=== PATIENT | female | born 1930 | race Caucasian/White ===

== ENCOUNTER 2017-12-21 17:44 | Emergency (ER) | payer OTHER ==
--- NOTE | 2017-12-21 18:18 | EKG ---
Test Date: 2017-12-21 Test Time: 17:59:36 Metal Furnace Operator: ROSANNA MEASUREMENT RESULTS: Intervals: Rate: 56 DC: 234 QRSD: 84 QT: 430 QTc: 414 [place]: P: 73 DC: 234 QRS: 43 T: 56 INTERPRETIVE STATEMENTS: Sinus bradycardia with 1st degree AV block Possible Left atrial enlargement Borderline ECG Compared to ECG 07/24/2016 18:35:19 No significant changes Electronically Signed On 12-21-17 18:17:42 CDT by Shaji Jeffery
[2017-12-21 18:40] LABS: Absolute Lymphocytes (CBC) 2.1 K/uL (0.7-4.9); Absolute Monocytes 0.6 K/uL (0.1-1.3); Absolute Neutrophil 4.3 K/uL (1.8-8.0); Basophils % 0.7 % (0-1.3); Eosinophils % 1.8 % (0-4.4); Hematocrit 33.7 % (36.0-45.0); Lymphocytes % 29.3 % (15.3-44.8); MCV 99.8 fL (80-100); MPV 9.8 fL (7.6-11.3); Monocytes % 8.5 % (3.3-12.3); RBC Red Blood Cell Count 3.38 M/uL (3.86-4.86)
[2017-12-21 18:42] LABS: Protime INR 0.92
[2017-12-21 18:55] LABS: Albumin 3.8 g/dL (3.4-5.0); Bilirubin Direct 0.1 mg/dL (0-0.2); Bilirubin Total 0.3 mg/dL (0.2-1.0); CKMB Creatine Kinase MB 1.3 ng/mL (0.3-3.6); Magnesium 2.4 mg/dL (1.8-2.4); Protein, Total 7.4 g/dL (6.4-8.2)
--- NOTE | 2017-12-21 19:27 | RAD REPORT ---
EXAM DESCRIPTION: Nnamdi Single View12/21/2017 6:35 pm CLINICAL HISTORY: Chest pain COMPARISON: April 2017 FINDINGS: The lungs appear clear of acute infiltrate. The heart is normal size IMPRESSION: No acute abnormalities displayed
--- NOTE | 2017-12-21 19:31 | RAD REPORT ---
EXAM DESCRIPTION: US - Abdomen Exam Limited - 12/21/2017 7:11 pm CLINICAL HISTORY: Abdominal pain. COMPARISON: None. FINDINGS: The gallbladder wall is not thickened. A gallstone is not seen. The biliary tree is normal caliber. IMPRESSION: Unremarkable gallbladder ultrasound.
[2017-12-21] MEDS ORDERED: ACETAMINOPHEN 325 MG TABLET ONE (19:32)
--- NOTE | 2017-12-21 20:34 | RAD REPORT ---
EXAM DESCRIPTION: CT - Angio Aorta For Dissection - 12/21/2017 8:02 pm CLINICAL HISTORY: . Chest pain COMPARISON: 1999 ct abdomen TECHNIQUE: Computed tomography angiography of the chest, abdomen pelvis were obtained. 100 cc Isovue 370 was administered intravenously. Coronal and sagittal reconstruction were performed. MIP 3D reconstruction was performed All CT scans are performed using dose optimization technique as appropriate and may include automated exposure control or mA/KV adjustment according to patient size. FINDINGS: An aortic dissection is not seen. An aortic aneurysm is not displayed. A bovine aorta is present The celiac, SMA and PEPE are patent . Thrombus results in marked narrowing of the proximal right renal artery A lung consolidation is not present. A pericardial effusion is not seen. A pleural effusion is not n oted. The liver,spleen, and adrenals demonstrate no significant abnormality. Small renal cysts are present 29 millimeter cystic lesion within the pancreatic body is unchanged There no evidence diverticulitis. No ascites is noted. Spondylosis of the lumbar spine resulting spinal stenosis The wall of the stomach appears thickened IMPRESSION: Negative for an aortic dissection. 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
[2017-12-21 21:05] LABS: Urine Blood NEGATIVE (NEG); Urine Glucose NEGATIVE (NEG); Urine Protein NEGATIVE (NEG); Urine Specific Gravity 1.015 (1.005-1.030)
--- NOTE | 2017-12-21 21:37 | RAD REPORT ---
EXAM DESCRIPTION: RAD - Thoracic Spine Ap/Lat - 12/21/2017 9:24 pm CLINICAL HISTORY: Back pain FINDINGS: The bones are osteoporotic. Mild spondylosis involves the thoracic spine. Mild kyphosis is present No fracture is seen
--- NOTE | 2017-12-21 22:01 | EDPHYS ---
Physician Documentation [facility] Name: Wilian Garcia Age: 87 yrs Sex: Female : 1930 Arrival Date: 12/21/2017 Time: 17:47 Bed 20 Private MD: Luis Mathews ED Physician Tim Garay HPI: 12/21 18:14 This 87 yrs old Female presents to ER via Ambulatory with complaints of Back jmm Pain, Nausea. 18:14 The patient presents with pain that is acute, with no known mechanism of injury. The jmm symptoms are located in the left subscapular area, right subscapular area and thoracic area. Onset: The symptoms/episode began/occurred gradually, 2 week(s) ago. The pain does not radiate. Associated signs and symptoms: Pertinent positives: nausea, Pertinent negatives: chest pain. This is am 87 year old female with a history of HTN that presents to the ED with 2 weeks upper back pain and nausea. Patient denies chest pain abdominal pain or shortness of breath. Patient states her pain is exacerbated when she is moving around. Patient also complains of nausea but she denies vomiting. . Historical: - Allergies: 17:52 Bactrim; hb 17:52 Codeine; hb 17:52 doxycycline hyclate; hb 17:52 Erythromycin; hb 17:52 Morphine; hb - Home Meds: 17:52 amlodipine 5 mg tab 1 tab once daily [Active]; ibandronate 150 mg Oral tab 1 tab once hb moly [Active]; magnesium oxide 500 mg Oral tab [Active]; metoprolol tartrate 25 mg Oral tab 1 tab 2 times per day [Active]; Premarin 0.625 mg/gram Vagl crea [Active]; pantoprazole 20 mg oral TbEC [Active]; - PMHx: 17:52 Hypertension; Osteoporosis; hb - PSHx: 17:52 Carpal Tunnel Repair; Hysterectomy; D \T\ C; bladder sx; Appendectomy; hb - Immunization history:: Adult Immunizations up to date. - Social history:: Smoking status: Patient/guardian denies using tobacco. - Ebola Screening: : No symptoms or risks identified at this time. ROS: 18:14 Constitutional: Negative for fever, chills, and weight loss, Cardiovascular: Negative jmm for chest pain, palpitations, and edema, Respiratory: Negative for shortness of breath, cough, wheezing, and pleuritic chest pain. 18:14 : Negative for injury, bleeding, discharge, and swelling, MS/Extremity: Negative for injury and deformity, Skin: Negative for injury, rash, and discoloration, Neuro: Negative for headache, weakness, numbness, tingling, and seizure. 18:14 Abdomen/GI: Positive for nausea, Negative for abdominal pain, vomiting, diarrhea. 18:14 Back: Positive for pain with movement. 18:14 All other systems are negative. Exam: 18:14 Head/Face: atraumatic. [facility] 18:14 Constitutional: The patient appears in no acute distress, alert, awake. 18:14 Chest/axilla: Inspection: normal. 18:14 Cardiovascular: Rate: normal, Rhythm: regular. 18:14 Respiratory: the patient does not display signs of respiratory distress, Respirations: normal, Breath sounds: are clear throughout. 18:14 Abdomen/GI: Inspection: abdomen appears normal, Bowel sounds: normal, Palpation: abdomen is soft and non-tender, in all quadrants. 18:14 Back: ROM is normal, CVA tenderness, is absent, vertebral tenderness, is not appreciated. 18:14 Musculoskeletal/extremity: ROM: intact in all extremities. 18:14 Skin: Appearance: Color: normal in color. 18:14 Neuro: Orientation: is normal, Mentation: is normal, Memory: is normal, Gait: is steady. 18:14 Psych: Behavior/mood is pleasant, cooperative. Vital Signs: 17:51 BP 162 / 62; Pulse 58; Resp 16; Temp 97.4; Pulse Ox 100% on R/A; Pain 0/10; hb 19:40 BP 150 / 45; Pulse 62; Resp 18; Pulse Ox 100% on R/A; aj1 20:30 BP 140 / 58; Pulse 64; Resp 18; Pulse Ox 100% ; aj1 21:34 BP 131 / 43; Pulse 57; Resp 18; Pulse Ox 99% on R/A; aj1 22:30 BP 113 / 83; Pulse 56; Resp 18; Pulse Ox 100% on R/A; lc1 MDM: 18:05 Patient medically screened. nancy 21:56 Data reviewed: vital signs, nurses notes. Counseling: I had a detailed discussion with nancy the patient and/or guardian regarding: the historical points, exam findings, and any diagnostic results supporting the discharge/admit diagnosis, radiology results, the need for outpatient follow up, to return to the emergency department if symptoms worsen or persist or if there are any questions or concerns that arise at home. 22:30 Data reviewed: lab test result(s), EKG, radiologic studies, CT scan, plain films. [facility] 22:30 ED course: I discussed the patient with Dr. Mathews. Will follow up with the patient in [facility] clinic. Imaging studies do not show any acute findings. Patient has no chest pain or shortness of breath. I do not currently suspect ACS. Patient and family given strict return precautions. Symptoms appear most likely musculoskeletal in nature. . 12/21 18:06 Order name: Basic Metabolic Panel [facility] 12/21 18:06 Order name: CBC with Diff [facility] 12/21 18:06 Order name: Ckmb [facility] 12/21 18:06 Order name: CPK [facility] 12/21 18:06 Order name: LFT's [facility] 12/21 18:06 Order name: Magnesium [facility] 12/21 18:06 Order name: NT PRO-BNP [facility] 12/21 18:06 Order name: PT-INR [facility] 12/21 18:06 Order name: Ptt, Activated [facility] 12/21 18:06 Order name: Troponin (emerg Dept Use Only) [facility] 12/21 18:06 Order name: Lipase [facility] 12/21 18:53 Order name: CBC with Automated Diff; Complete Time: 19:15 [facility] 12/21 18:53 Order name: Protime (+INR); Complete Time: 19:15 [facility] 12/21 18:53 Order name: PTT, Activated Partial Thromb; Complete Time: 19:15 [facility] 12/21 18:06 Order name: XRAY Chest (1 view) [facility] 12/21 18:14 Order name: US Abdomen Limited [facility] 12/21 18:55 Order name: Basic Metabolic Panel; Complete Time: 19:15 [facility] 12/21 18:55 Order name: Liver (Hepatic) Function; Complete Time: 19:15 [facility] 12/21 18:55 Order name: Creatine Phosphokinase; Complete Time: 19:15 [facility] 12/21 18:55 Order name: CKMB Creatine Kinase MB; Complete Time: 19:15 [facility] 12/21 18:55 Order name: NT PRO-BNP; Complete Time: 19:15 [facility] 12/21 18:55 Order name: Magnesium; Complete Time: 19:15 [facility] 12/21 18:55 Order name: Lipase; Complete Time: 19:15 [facility] 12/21 18:55 Order name: Troponin (Emerg Dept Use Only); Complete Time: 19:15 [facility] 12/21 19:27 Order name: RAD; Complete Time: 19:29 [facility] 12/21 19:31 Order name: US; Complete Time: 19:32 [facility] 12/21 19:33 Order name: CT Aorta for Dissection [facility] 12/21 19:40 Order name: Urine Dipstick--Ancillary (enter results); Complete Time: 21:16 [facility] 12/21 20:35 Order name: CT; Complete Time: 20:36 [facility] 12/21 20:43 Order name: XRAY Thoracic Spine (Ap/lat); Complete Time: 21:43 [facility] 12/21 18:06 Order name: EKG; Complete Time: 18:06 [facility] 12/21 18:06 Order name: Cardiac monitoring; Complete Time: 18:09 [facility] 12/21 18:06 Order name: EKG - Nurse/Tech; Complete Time: 18:09 [facility] 12/21 18:06 Order name: IV Saline Lock; Complete Time: 18:24 [facility] 12/21 18:06 Order name: Labs collected and sent; Complete Time: 18:24 [facility] 12/21 18:06 Order name: O2 Per Protocol; Complete Time: 18:09 [facility] 12/21 18:06 Order name: O2 Sat Monitoring; Complete Time: 18:09 [facility] 12/21 18:06 Order name: Urine Dipstick-Ancillary (obtain specimen); Complete Time: 19:41 jm Administered Medications: 22:31 Not Given (Patient Refused): Tylenol 650 mg PO once lc1 Disposition: 12/22 07:08 Co-signature as Attending Physician, Tim Garay MD. rn Disposition: 12/21/17 22:01 Discharged to Home. Impression: Thoracic Strain. - Condition is Stable. - Discharge Instructions: Thoracic Strain. - Medication Reconciliation Form, Thank You Letter, Antibiotic Education, Prescription Opioid Use form. - Follow up: Luis Mathews MD; When: 1 - 2 days; Reason: Recheck today's complaints, Continuance of care, Re-evaluation by your physician. Signatures: Dispatcher [employer] Daysi Green RN RN aj1 Sriram Miles PA PA jmm Nieto, Roman, MD MD rn Calhoun, Lisa lc1 Viridiana Ledezma RN RN Corrections: (The following items were deleted from the chart) 12/21 22:33 22:01 12/21/2017 22:01 Discharged to Home. Impression: Thoracic Strain. Condition is lc1 Stable. Forms are Medication Reconciliation Form, Thank You Letter, Antibiotic Education, Prescription Opioid Use. Follow up: Luis Mathews; When: 1 - 2 days; Reason: Recheck today's complaints, Continuance of care, Re-evaluation by your physician. nancy
--- NOTE | 2017-12-21 22:01 | ER ---
Nurse's Notes [facility] Name: Wilian Garcia Age: 87 yrs Sex: Female : 1930 Arrival Date: 12/21/2017 Time: 17:47 Bed 20 Private MD: Luis Mathews Diagnosis: Thoracic Strain Presentation: 12/21 17:48 Presenting complaint: Presenting complaint: Patient states: Upper back pain and nausea hb since this morning. Pt also reports brief left sided chest pain earlier today. Denies SOB. 17:49 Transition of care: patient was not received from another setting of care. Onset of hb symptoms was December 21, 2017. Risk Assessment: Do you want to hurt yourself or someone else? Patient reports no desire to harm self or others. Care prior to arrival: None. 17:49 Method Of Arrival: Ambulatory hb 17:49 Acuity: ANETA 3 hb Historical: - Allergies: 17:52 Bactrim; hb 17:52 Codeine; hb 17:52 doxycycline hyclate; hb 17:52 Erythromycin; hb 17:52 Morphine; hb - Home Meds: 17:52 amlodipine 5 mg tab 1 tab once daily [Active]; ibandronate 150 mg Oral tab 1 tab once hb moly [Active]; magnesium oxide 500 mg Oral tab [Active]; metoprolol tartrate 25 mg Oral tab 1 tab 2 times per day [Active]; Premarin 0.625 mg/gram Vagl crea [Active]; pantoprazole 20 mg oral TbEC [Active]; - PMHx: 17:52 Hypertension; Osteoporosis; hb - PSHx: 17:52 Carpal Tunnel Repair; Hysterectomy; D \T\ C; bladder sx; Appendectomy; hb - Immunization history:: Adult Immunizations up to date. - Social history:: Smoking status: Patient/guardian denies using tobacco. - Ebola Screening: : No symptoms or risks identified at this time. Screenin:10 Abuse screen: Denies threats or abuse. Denies injuries from another. Nutritional aj1 screening: No deficits noted. Tuberculosis screening: No symptoms or risk factors identified. Assessment: 18:10 General: Appears in no apparent distress. comfortable, Behavior is calm, cooperative, aj1 appropriate for age. Pain: Complains of pain in thoracic area Pain does not radiate. Pain began 2 weeks ago. Neuro: Level of Consciousness is awake, alert, obeys commands, Oriented to person, place, time, situation, Speech is normal, Facial symmetry appears normal. Cardiovascular: Denies chest pain, diaphoresis, lightheadedness, palpitations, shortness of breath, syncope, Heart tones S1 S2 present Patient's skin is warm and dry. Rhythm is regular. Respiratory: Reports shortness of breath on exertion Airway is patent Respiratory effort is even, unlabored, Respiratory pattern is regular, symmetrical, Breath sounds are clear bilaterally. GI: No signs and/or symptoms were reported involving the gastrointestinal system. : No signs and/or symptoms were reported regarding the genitourinary system. EENT: No signs and/or symptoms were reported regarding the EENT system. Derm: No signs and/or symptoms reported regarding the dermatologic system. Skin is pink, warm \T\ dry. normal. Musculoskeletal: No signs and/or symptoms reported regarding the musculoskeletal system. Circulation, motion, and sensation intact. 19:40 Reassessment: Patient appears in no apparent distress at this time. No changes from aj1 previously documented assessment. Patient and/or family updated on plan of care and expected duration. Pain level reassessed. Patient is alert, oriented x 3, equal unlabored respirations, skin warm/dry/pink. 20:40 Reassessment: Patient appears in no apparent distress at this time. No changes from aj1 previously documented assessment. Patient and/or family updated on plan of care and expected duration. Pain level reassessed. Patient is alert, oriented x 3, equal unlabored respirations, skin warm/dry/pink. 21:34 Reassessment: Patient appears in no apparent distress at this time. No changes from aj1 previously documented assessment. Patient and/or family updated on plan of care and expected duration. Pain level reassessed. Patient is alert, oriented x 3, equal unlabored respirations, skin warm/dry/pink. Vital Signs: 17:51 BP 162 / 62; Pulse 58; Resp 16; Temp 97.4; Pulse Ox 100% on R/A; Pain 0/10; hb 19:40 BP 150 / 45; Pulse 62; Resp 18; Pulse Ox 100% on R/A; aj1 20:30 BP 140 / 58; Pulse 64; Resp 18; Pulse Ox 100% ; aj1 21:34 BP 131 / 43; Pulse 57; Resp 18; Pulse Ox 99% on R/A; aj1 22:30 BP 113 / 83; Pulse 56; Resp 18; Pulse Ox 100% on R/A; lc1 ED Course: 17:47 Patient arrived in ED. mr 17:47 Luis Mathews MD is Private Physician. mr 17:51 Triage completed. hb 17:52 Arm band placed on right wrist. hb 17:58 Sriram Miles PA is PHCP. [facility] 17:58 Tim Garay MD is Attending Physician. [facility] 18:05 EKG done, by manufacturing technologist. reviewed by Sriram YOUNG. sm3 18:09 Daysi Persaud, RN is Primary Nurse. aj1 18:10 Patient has correct armband on for positive identification. Bed in low position. Call aj1 light in reach. Side rails up X 1. patient monitor on. Pulse ox on. NIBP on. 18:10 No provider procedures requiring assistance completed. [facility] 18:25 Initial lab(s) drawn, by md, sent to lab. Inserted saline lock: 20 gauge in right [facility] antecubital area, using aseptic technique. Blood collected. 18:33 X-ray completed. Portable x-ray completed in exam room. Patient tolerated procedure bb2 well. 19:10 Ultrasound completed. Patient tolerated well. aa4 19:[address] 2 21:25 XRAY Thoracic Spine (Ap/lat) In Process Unspecified. EDMS 22:00 Luis Mathews MD is Referral Physician. [facility] Administered Medications: 22:31 Not Given (Patient Refused): Tylenol 650 mg PO once lc1 Outcome: 22:01 Discharge ordered by . [facility] 22:33 Patient left the ED. 1 Signatures: Dispatcher [employer] EDMS Daysi Persaud, RN RN 1 Sriram Miles PA PA [facility] BriggsAmeena Padmini Howard aa4 Beth Issa lc1 Viridiana Ledezma RN RN Danae Flores 2 Tania Barney 2 Sania Carrillo 3 Corrections: (The following items were deleted from the chart) 17:51 17:48 Presenting complaint: hb hb 22:31 19:40 Tylenol 650 mg PO aj1 lc1
[2017-12-21 22:40] VITALS: TEMP 97.4
[2017-12-21 22:45] VITALS: BP 113/83; O2SAT 100
== END 2017-12-21 22:33 | disposition home or self-care (01) ==
LOC: ER 17:44
DX: S29.012A Strain of muscle and tendon of back wall of thorax, initial encounter (principal); I10 Essential (primary) hypertension; Z88.1 Allergy status to other antibiotic agents; Z88.3 Allergy status to other anti-infective agents; Z88.5 Allergy status to narcotic agent
CPT/HCPCS: 36415; 71045; 71275; 72070; 74175; 76705; 80048; 80076; 81003; 82550; 82553; 83690; 83735; 83880; 84484; 85025; 85610; 85730; 93005; Q9967; 99285

== ENCOUNTER 2018-04-18 19:16 | Emergency (ER) | payer OTHER ==
--- NOTE | 2018-04-18 20:57 | RAD REPORT ---
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 No acute fracture, dislocation or evidence of AVN.
[2018-04-18] MEDS ORDERED: ACETAMINOPHEN 325 MG TABLET ONE (21:03)
--- NOTE | 2018-04-18 21:13 | EDPHYS ---
Physician Documentation [facility] Name: Wilian Garcia Age: 87 yrs Sex: Female : 1930 Arrival Date: 04/18/2018 Time: 19:20 Bed 28 Private MD: Luis Mathews ED Physician Mychal Young HPI: 04/18 20:57 This 87 yrs old Female presents to ER via Wheelchair with complaints of Fall gs Injury. 20:57 Details of fall: The patient fell from an upright position. Onset: The symptoms/episode gs began/occurred acutely, just prior to arrival. Associated injuries: The patient sustained left hip. Severity of symptoms: At their worst the symptoms were moderate, in the emergency department the symptoms are unchanged. The patient has not experienced similar symptoms in the past. Historical: - Allergies: 19:36 Bactrim; aj 19:36 Codeine; aj 19:36 doxycycline hyclate; aj 19:36 Erythromycin; aj 19:36 Morphine; aj - Home Meds: 19:36 amlodipine 5 mg TbER 1 tab once daily [Active]; aspirin 81 mg Oral TbEC 1 tab once aj daily [Active]; ibandronate 150 mg Oral TbER 1 tab once moly [Active]; magnesium oxide 500 mg Oral TbER [Active]; metoprolol tartrate 25 mg Oral TbER 1 tab 2 times per day [Active]; pantoprazole 20 mg Oral TbEC [Active]; Premarin 0.625 mg/gram Vagl crea [Active]; - PMHx: 19:36 Hypertension; Osteoporosis; aj - PSHx: 19:36 Carpal Tunnel Repair; Hysterectomy; D \T\ C; bladder sx; Appendectomy; aj - Immunization history: Last tetanus immunization: unknown. - Social history:: Smoking status: Patient/guardian denies using tobacco. - Ebola Screening: : Patient negative for fever greater than or equal to 101.5 degrees Fahrenheit, and additional compatible Ebola Virus Disease symptoms Patient denies exposure to infectious person Patient denies travel to an Ebola-affected area in the 21 days before illness onset No symptoms or risks identified at this time. ROS: 20:57 Cardiovascular: Negative for chest pain, palpitations. gs 20:57 All other systems are negative. Exam: 20:57 Head/Face: Normocephalic, atraumatic. Eyes: Pupils equal round and reactive to light, gs extra-ocular motions intact. Lids and lashes normal. Conjunctiva and sclera are non-icteric and not injected. Cornea within normal limits. Periorbital areas with no swelling, redness, or edema. ENT: Nares patent. No nasal discharge, no septal abnormalities noted. Tympanic membranes are normal and external auditory canals are clear. Oropharynx with no redness, swelling, or masses, exudates, or evidence of obstruction, uvula midline. Mucous membranes moist. Neck: Trachea midline, no thyromegaly or masses palpated, and no cervical lymphadenopathy. Supple, full range of motion without nuchal rigidity, or vertebral point tenderness. No Meningismus. Chest/axilla: Normal chest wall appearance and motion. Nontender with no deformity. No lesions are appreciated. Cardiovascular: Regular rate and rhythm with a normal S1 and S2. No gallops, murmurs, or rubs. Normal PMI, no JVD. No pulse deficits. Respiratory: Lungs have equal breath sounds bilaterally, clear to auscultation and percussion. No rales, rhonchi or wheezes noted. No increased work of breathing, no retractions or nasal flaring. Abdomen/GI: Soft, non-tender, with normal bowel sounds. No distension or tympany. No guarding or rebound. No evidence of tenderness throughout. Back: No spinal tenderness. No costovertebral tenderness. Full range of motion. Skin: Warm, dry with normal turgor. Normal color with no rashes, no lesions, and no evidence of cellulitis. Neuro: Awake and alert, GCS 15, oriented to person, place, time, and situation. Cranial nerves II-XII grossly intact. Motor strength 5/5 in all extremities. Sensory grossly intact. Cerebellar exam normal. Normal gait. 20:57 Constitutional: The patient appears alert, awake. 20:57 Musculoskeletal/extremity: Extremities: noted in the left upper thigh and left hip: Circulation is intact in all extremities. Vital Signs: 19:30 BP 148 / 54; Pulse 64; Resp 20; Temp 97.5; Pulse Ox 99% on R/A; Weight 55.79 kg; Height aj 5 ft. 3 in. (160.02 cm); 20:30 BP 115 / 86; Pulse 70; Resp 18; Pulse Ox 99% on R/A; kr2 21:30 BP 118 / 80; Pulse 66; Resp 17; Pulse Ox 99% on R/A; kr2 19:30 Body Mass Index 21.79 (55.79 kg, 160.02 cm) aj Usha Coma Score: 19:30 Eye Response: spontaneous(4). Verbal Response: oriented(5). Motor Response: obeys aj commands(6). Total: 15. Trauma Score (Adult): 19:30 Eye Response: spontaneous(1); Verbal Response: oriented(1); Motor Response: obeys aj commands(2); Systolic BP: > 89 mm Hg(4); Respiratory Rate: 10 to 29 per min(4); Wirtz Score: 15; Trauma Score: 12 MDM: 20:21 Patient medically screened. 20:57 Differential diagnosis: fracture, sprain, strain. Data reviewed: vital signs, nurses notes. Response to treatment: the patient's symptoms have markedly improved after treatment, and as a result, I will discharge patient. 04/18 20:22 Order name: Hip Left 2 View XRAY 04/18 20:22 Order name: Pelvis XRAY Administered Medications: 21:00 Drug: Tylenol 650 mg Route: PO; kr2 21:30 Follow up: Response: No adverse reaction; Pain is decreased kr2 Disposition: 04/18/18 21:12 Discharged to Home. Impression: Iliofemoral ligament sprain of left hip. - Condition is Stable. - Medication Reconciliation Form, Thank You Letter, Antibiotic Education, Prescription Opioid Use form. - Follow up: Private Physician; When: 2 - 3 days; Reason: Re-evaluation by your physician. Follow up: Robert Rojas MD; When: 2 - 3 days; Reason: Re-evaluation by your physician. Signatures: Dispatcher [employer] Padmini Martinez RN RN Mychal Mcdaniels MD MD gs Reaves, Karey, RN RN kr2 Corrections: (The following items were deleted from the chart) 21:35 21:12 04/18/2018 21:12 Discharged to Home. Impression: Iliofemoral ligament sprain of kr2 left hip. Condition is Stable. Forms are Medication Reconciliation Form, Thank You Letter, Antibiotic Education, Prescription Opioid Use. Follow up: Private Physician; When: 2 - 3 days; Reason: Re-evaluation by your physician. Follow up: Robert Rojas; When: 2 - 3 days; Reason: Re-evaluation by your physician. gs
--- NOTE | 2018-04-18 21:13 | ER ---
Nurse's Notes [facility] Name: Wilian Garcia Age: 87 yrs Sex: Female : 1930 Arrival Date: 04/18/2018 Time: 19:20 Bed 28 Private MD: Luis Mathews Diagnosis: Iliofemoral ligament sprain of left hip Presentation: 04/18 19:30 Presenting complaint: Patient states: Patient fell from standing position while walking aj in grocery store 1.5 hours [employer]. Reports pain to left hip. Care prior to arrival: None. Mechanism of Injury: Fall from standing position. Trauma event details: Injury occurred in the [facility], Injury occurred: in a public building. Injury occurred: April 18, 2018 Injury occurred at: 18:00. 19:30 Acuity: ANETA 3 aj 19:30 Method Of Arrival: Wheelchair aj 19:34 Transition of care: patient was not received from another setting of care. Onset of aj symptoms was April 18, 2018. Risk Assessment: Do you want to hurt yourself or someone else? Patient reports no desire to harm self or others. Initial Sepsis Screen: Does the patient meet any 2 criteria? No. Patient's initial sepsis screen is negative. Does the patient have a suspected source of infection? No. Patient's initial sepsis screen is negative. Trauma Activation: Alert Physician: ED Physician; Name: ; Notified At: ; Arrived At: Physician: General Surgeon; Name: ; Notified At: ; Arrived At: Physician: Radiology; Name: ; Notified At: ; Arrived At: Physician: Respiratory; Name: ; Notified At: ; Arrived At: Physician: Lab; Name: ; Notified At: ; Arrived At: Historical: - Allergies: 19:36 Bactrim; aj 19:36 Codeine; aj 19:36 doxycycline hyclate; aj 19:36 Erythromycin; aj 19:36 Morphine; aj - Home Meds: 19:36 amlodipine 5 mg TbER 1 tab once daily [Active]; aspirin 81 mg Oral TbEC 1 tab once aj daily [Active]; ibandronate 150 mg Oral TbER 1 tab once moly [Active]; magnesium oxide 500 mg Oral TbER [Active]; metoprolol tartrate 25 mg Oral TbER 1 tab 2 times per day [Active]; pantoprazole 20 mg Oral TbEC [Active]; Premarin 0.625 mg/gram Vagl crea [Active]; - PMHx: 19:36 Hypertension; Osteoporosis; aj - PSHx: 19:36 Carpal Tunnel Repair; Hysterectomy; D \T\ C; bladder sx; Appendectomy; aj - Immunization history: Last tetanus immunization: unknown. - Social history:: Smoking status: Patient/guardian denies using tobacco. - Ebola Screening: : Patient negative for fever greater than or equal to 101.5 degrees Fahrenheit, and additional compatible Ebola Virus Disease symptoms Patient denies exposure to infectious person Patient denies travel to an Ebola-affected area in the 21 days before illness onset No symptoms or risks identified at this time. Screenin:30 Abuse screen: Denies threats or abuse. Denies injuries from another. Nutritional kr2 screening: No deficits noted. Tuberculosis screening: No symptoms or risk factors identified. Fall Risk Fall in past 12 months (25 points). Primary Survey: 19:30 A: Airway: patent. Breathing/Chest: Respiratory pattern: regular, Respiratory effort: aj spontaneous, unlabored. Circulation: Skin color: pink. Disability Alert. 20:00 Reassessment Airway Airway Patent Breathing/Chest Respiratory pattern Regular kr2 Respiratory effort Spontaneous Unlabored Breath sounds Clear Chest inspection Symmetrical Circulation Heart rhythm Sinus rhythm Heart tones Present Pulses Palpable Color Esparto. Assessment: 19:30 General: Appears in no apparent distress. comfortable, Behavior is calm, cooperative, aj appropriate for age. Pain: Complains of pain in left hip. Neuro: Level of Consciousness is awake, alert, obeys commands, Oriented to person, place, time, situation, Appropriate for age. Respiratory: Airway is patent Respiratory effort is even, unlabored, Respiratory pattern is regular, symmetrical. Derm: Skin is intact, is healthy with good turgor, Skin is pink, warm \T\ dry. normal. Musculoskeletal: Reports pain in left hip. 20:30 Reassessment: Patient appears in no apparent distress at this time. Patient and/or kr2 family updated on plan of care and expected duration. Pain level reassessed. Patient is alert, oriented x 3, equal unlabored respirations, skin warm/dry/pink. 21:30 Reassessment: Patient appears in no apparent distress at this time. Patient and/or kr2 family updated on plan of care and expected duration. Pain level reassessed. Patient is alert, oriented x 3, equal unlabored respirations, skin warm/dry/pink. Patient states feeling better. Patient states symptoms have improved. Vital Signs: 19:30 BP 148 / 54; Pulse 64; Resp 20; Temp 97.5; Pulse Ox 99% on R/A; Weight 55.79 kg; Height aj 5 ft. 3 in. (160.02 cm); 20:30 BP 115 / 86; Pulse 70; Resp 18; Pulse Ox 99% on R/A; kr2 21:30 BP 118 / 80; Pulse 66; Resp 17; Pulse Ox 99% on R/A; kr2 19:30 Body Mass Index 21.79 (55.79 kg, 160.02 cm) aj Hancock Coma Score: 19:30 Eye Response: spontaneous(4). Verbal Response: oriented(5). Motor Response: obeys aj commands(6). Total: 15. Trauma Score (Adult): 19:30 Eye Response: spontaneous(1); Verbal Response: oriented(1); Motor Response: obeys aj commands(2); Systolic BP: > 89 mm Hg(4); Respiratory Rate: 10 to 29 per min(4); Usha Score: 15; Trauma Score: 12 ED Course: 04/17 19:30 Patient has correct armband on for positive identification. Placed in gown. Bed in low kr2 position. Call light in reach. Side rails up X2. Adult w/ patient. laboratory monitor on. Pulse ox on. NIBP on. Door closed. 1203 19:20 Patient arrived in ED. am2 19:20 Luis Mathews MD is Private Physician. am2 19:30 Patient maintains SpO2 saturation greater than 95% on room air. Thermoregulation: warm kr2 blanket given to patient. 19:32 Triage completed. aj 19:36 Arm band placed on left wrist. Patient placed in an exam room. aj 20:21 Mychal Young MD is Attending Physician. gs 20:30 Zaira Trimble, DEBORAH is Primary Nurse. kr2 20:47 Hip Left 2 View XRAY In Process Unspecified. EDMS 20:47 Pelvis XRAY In Process Unspecified. EDMS 21:12 Robert Rojas MD is Referral Physician. gs 21:30 No provider procedures requiring assistance completed. Patient did not have IV access kr2 during this emergency room visit. Administered Medications: 21:00 Drug: Tylenol 650 mg Route: PO; kr2 21:30 Follow up: Response: No adverse reaction; Pain is decreased kr2 Intake: 21:30 PO: 30ml (Water); Total: 30ml. kr2 Outcome: 21:12 Discharge ordered by . 21:30 Discharged to home via wheelchair, with family. kr2 21:30 Condition: good 21:30 Discharge instructions given to patient, family, Instructed on discharge instructions, follow up and referral plans. Demonstrated understanding of instructions, follow-up care. 21:30 Patient's length of stay was not longer than 2 hours. kr2 21:35 Patient left the ED. kr2 Signatures: Dispatcher [employer] EDMS Padmini Beal, Padmini Kumar RN, Gregory, MD MD gs Reaves, Karey, RN RN kr2 Corrections: (The following items were deleted from the chart) 22:00 21:45 Response: No adverse reaction; Pain is decreased kr2 kr2
[2018-04-18 21:49] VITALS: BP 148/54; TEMP 97.5; O2SAT 99
--- NOTE | 2018-04-19 09:43 | RAD REPORT ---
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 No acute fracture, dislocation or evidence of AVN.
== END 2018-04-18 21:35 | disposition home or self-care (01) ==
LOC: ER 19:16
DX: S73.112A Iliofemoral ligament sprain of left hip, initial encounter (principal); W18.30XA Fall on same level, unspecified, initial encounter; Y93.9 Activity, unspecified; Y92.9 Unspecified place or not applicable; Z79.82 Long term (current) use of aspirin; Z88.1 Allergy status to other antibiotic agents; Z88.3 Allergy status to other anti-infective agents; Z88.5 Allergy status to narcotic agent; I10 Essential (primary) hypertension
CPT/HCPCS: 72170; 99284